=== PATIENT | female | born 1990 | race American Indian/Alaskan Native ===

== ENCOUNTER 2018-09-27 03:55 | Emergency (ER) | payer MEDICAID ==
[2018-09-27 05:06] LABS: Basophils % (Auto) 0.5 % (0.0-1.8); Eosinophils % (Auto) 0.1 % (0.0-4.3); Hematocrit 35.2 % (30.3-42.9); Hemoglobin 11.8 gm/dl (10.1-14.3); Lymphocytes # (Auto) 0.4 K/mm3 (1.2-5.4); Lymphocytes % (Auto) 6.3 % (13.4-35.0); Mean Corpuscular HGB Conc 34 % (30-34); Mean Corpuscular Volume 85 fl (79-97); Monocytes # (Auto) 0.3 K/mm3 (0.0-0.8); Monocytes % (Auto) 4.8 % (0.0-7.3); Platelet Count 311 K/mm3 (140-440); Red Blood Count 4.13 M/mm3 (3.65-5.03); Red Cell Distribution Width 14.2 % (13.2-15.2)
[2018-09-27 05:11] LABS: BUN/Creatinine Ratio 17; Blood Urea Nitrogen 10 mg/dL (7-17); Calcium 9.3 mg/dL (8.4-10.2); Hemolysis Index 2
[2018-09-27 05:50] LABS: Bilirubin,Urine NEG (Negative); Blood,Urine SM (Negative); Color,Urine Straw (Yellow); Hyaline Casts,Urine 3 /LPF; Mucus,Urine FEW /HPF; Protein,Urine <15 mg/dL mg/dL (Negative); Urobilinogen,Urine < 2.0 mg/dL (<2.0)
[2018-09-27 05:55] LABS: HCG Qualitative,Urine Negative (Negative)
[2018-09-27 06:02] LABS: Amphetamine Screen,Urine PRESUMPTIVE NEGATIVE; Benzodiazepines Screen,Urine PRESUMPTIVE NEGATIVE; Cocaine Screen,Urine PRESUMPTIVE NEGATIVE; Methadone Screen,Urine PRESUMPTIVE NEGATIVE; Opiate Screen,Urine PRESUMPTIVE NEGATIVE
[2018-09-27] MEDS ORDERED: FLAGYL PO STA (06:16)
[2018-09-27] MEDS ORDERED: XYLOCAINE 1% MPF 5 mL INFILTRATI ONE (06:16)
[2018-09-27] MEDS ORDERED: ROCEPHIN IM ONE (06:16)
[2018-09-27] MEDS ORDERED: ZITHROMAX PO ONE (06:16)
[2018-09-27 06:17] LABS: Cannabinoid Screen,Urine PRESUMPTIVE POSITIVE
[2018-09-27] MEDS ORDERED: K-DUR PO ONE (06:26)
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
[2018-09-27 06:29] LABS: Albumin 4.5 g/dL (3.9-5)
[2018-09-27] MEDS ORDERED: VIREAD PO ONE (06:38)
[2018-09-27] MEDS ORDERED: ISENTRESS PO ONE (06:38)
[2018-09-27] MEDS ORDERED: EMTRIVA PO ONE (06:48)
[2018-09-27 06:51] LABS: Alanine Aminotransferase 6 units/L (7-56)
[2018-09-27 06:53] LABS: Bilirubin,Direct < 0.2 mg/dL (0-0.2)
[2018-09-27 07:30] VITALS: BP 126/75
== END 2018-09-27 11:27 | disposition home or self-care (01) ==
LOC: EEVIPCON 03:55 → ED 03:55
DX: S80.211A Abrasion, right knee, initial encounter (principal); I10 Essential (primary) hypertension; Z98.890 Other specified postprocedural states; Z79.899 Other long term (current) drug therapy; Y04.8XXA Assault by other bodily force, initial encounter; Y93.89 Activity, other specified; Y92.89 Other specified places as the place of occurrence of the external cause; Y99.8 Other external cause status
CPT/HCPCS: 36415; 80048; 80076; 80307; 81001; 81025; 82550; 83690; 85025; 93005; 93010; 96372; 99284; J0696; 80320; G0480